=== PATIENT | female | born 1990 | race Two or more races ===

== ENCOUNTER 2019-09-26 16:13 | Inpatient (IN) | payer MEDICAID ==
[~2019-09-26] VITALS: Ht 165.1 cm; Wt 80.3 kg
[2019-09-26] MEDS ORDERED: POLYETHYLENE GLYCOL 17 GM PACKET PO PRN (16:30)
[2019-09-26] MEDS ORDERED: ONDANSETRON ODT 4 MG PO PRN (16:30)
[2019-09-26] MEDS ORDERED: ACETAMINOPHEN 325 MG TABLET PO PRN (16:30)
[2019-09-26] MEDS ORDERED: BISACODYL 10 MG SUPP PR PRN (16:30)
[2019-09-26] MEDS ORDERED: PLEASE ENTER ALLERGIES MC SCH ×2 (18:00→19:00)
[2019-09-26] MEDS ORDERED: PLEASE ENTER HEIGHT AND WEIGHT MC SCH (18:00)
[2019-09-26] MEDS ORDERED: CITA10TA8 PO (18:51)
[2019-09-26] MEDS ORDERED: ALBU6.7H8 INH (18:53)
[2019-09-26 18:58] LABS: MICROSCOPIC NOT IND
[2019-09-26 19:02] LABS: CULTURE INDICATED? NO
[2019-09-26 19:10] VITALS: BP 83/50
[2019-09-26 19:19] VITALS: BP 124/83
[2019-09-26] MEDS ORDERED: CITALOPRAM 20 MG TABLET PO SCH (21:30)
[2019-09-27 06:11] LABS: ANION GAP 5 mmol/L (5-15); CHLORIDE 108 mmol/L (98-107); CHOLESTEROL, TOTAL 228 mg/dL (140-239); CREATININE 0.75 mg/dL (0.55-1.02)
[2019-09-27 06:38] LABS: CHOL/HDL RATIO 5.4; HDL CHOL % 18 % (28-40); HDL CHOLESTEROL (DIRECT) 42 mg/dL (40-60); LDL CHOLESTEROL,CALCULATED 151 mg/dL (54-169); LDL/HDL RATIO 3.6 (0.5-3.0); TRIGLYCERIDES 177 mg/dL (50-200); VLDL CHOLESTEROL 35 mg/dL (0-25)
[2019-09-27 07:19] VITALS: BP 126/81
[2019-09-27] MEDS ORDERED: FLUCONAZOLE 100 MG TABLET PO ONE (08:30)
[2019-09-27 19:59] VITALS: BP 125/83
[2019-09-27 20:33] LABS: BASOPHILS # (AUTO) 0.06 x10^3/uL (0-0.1); BASOPHILS % (AUTO) 1 % (0-1); EOSINOPHILS # (AUTO) 0.06 x10^3/uL (0-0.4); EOSINOPHILS % (AUTO) 1 % (1-7); LYMPHOCYTES # (AUTO) 1.87 x10^3/uL (1-3.4); LYMPHOCYTES % (AUTO) 24 % (22-44); MD NO; MEAN CORPUSCULAR HEMOGLOBIN 30.1 pg (27.0-34.8); MEAN CORPUSCULAR HGB CONC 32.9 g/dL (32.4-35.8); MEAN CORPUSCULAR VOLUME 91.3 fL (80-100); MEAN PLATELET VOLUME 8.8 fL (7.4-10.4); MONOCYTES # (AUTO) 0.76 x10^3/uL (0.2-0.8); MONOCYTES % (AUTO) 10 % (2-9); NEUTROPHILS # (AUTO) 5.14 x10^3/uL (1.8-6.8); NEUTROPHILS % (AUTO) 65 % (42-75); PLATELET COUNT 260 x10^3/uL (130-400); RED BLOOD COUNT 4.77 x10^6/uL (3.82-5.3); RED CELL DISTRIBUTION WIDTH 16.5 % (9.6-15.2)
[2019-09-27] MEDS: DOCUSATE 100 MG CAPSULE PO PRN (20:33)
[2019-09-27] MEDS: CITALOPRAM 20 MG TABLET PO SCH (20:33)
[2019-09-28 07:48] VITALS: BP 135/86
[2019-09-28] MEDS: DOCUSATE 100 MG CAPSULE PO PRN (14:26)
[2019-09-28 19:42] VITALS: BP 132/87
[2019-09-28] MEDS: QUETIAPINE 25MG TABLET PO SCH (20:36)
[2019-09-28] MEDS: CITALOPRAM 20 MG TABLET PO SCH (20:36)
[2019-09-29 07:40] VITALS: BP 111/75
[2019-09-29] MEDS: DOCUSATE 100 MG CAPSULE PO PRN (08:27)
[2019-09-29] MEDS: CHOLECALCIFEROL 400 UNITS TABLET PO SCH (13:39)
[2019-09-29 19:25] VITALS: BP 123/79
[2019-09-29] MEDS: QUETIAPINE 25MG TABLET PO SCH (20:33)
[2019-09-29] MEDS: CITALOPRAM 20 MG TABLET PO SCH (20:33)
[2019-09-30 07:15] VITALS: BP 126/80
[2019-09-30] MEDS: CHOLECALCIFEROL 400 UNITS TABLET PO SCH (08:21)
[2019-09-30] MEDS: DOCUSATE 100 MG CAPSULE PO PRN (08:31)
[2019-09-30 19:00] VITALS: BP 116/78
[2019-09-30] MEDS: QUETIAPINE 25MG TABLET PO SCH (20:05)
[2019-09-30] MEDS: CITALOPRAM 20 MG TABLET PO SCH (20:05)
[2019-10-01 07:33] VITALS: BP 118/76
[2019-10-01] MEDS: CHOLECALCIFEROL 400 UNITS TABLET PO SCH (09:06)
[2019-10-01] MEDS ORDERED: CHOL400T2 PO (15:08)
[2019-10-01] MEDS ORDERED: QUET25TA7 PO (15:08)
[2019-10-01] MEDS ORDERED: CITA20TA9 PO (15:08)
[2019-10-01 19:30] VITALS: BP 121/80
[2019-10-01] MEDS: CITALOPRAM 20 MG TABLET PO SCH (19:57)
[2019-10-01] MEDS: QUETIAPINE 25MG TABLET PO SCH (19:58)
[2019-10-02 07:15] VITALS: BP 120/80
[2019-10-02] MEDS: CHOLECALCIFEROL 400 UNITS TABLET PO SCH (08:44)
== END 2019-10-02 10:25 | disposition home or self-care (01) | DRG 561 ==
LOC: 3E 17:41
PROVIDERS: ADMIT Psychiatry & Neurology Psychosomatic Medicine; ATTEND Psychiatry & Neurology Psychosomatic Medicine
DX: O99.345 Other mental disorders complicating the puerperium (principal); R45.851 Suicidal ideations; M41.9 Scoliosis, unspecified; F31.9 Bipolar disorder, unspecified; B37.3 Candidiasis of vulva and vagina; J45.909 Unspecified asthma, uncomplicated; F53.0 Postpartum depression; O99.53 Diseases of the respiratory system complicating the puerperium; Z79.899 Other long term (current) drug therapy; H54.8 Legal blindness, as defined in USA; H35.53 Other dystrophies primarily involving the sensory retina; G47.00 Insomnia, unspecified
CPT/HCPCS: 36415; 71045; 80048; 80061; 81003; 82607; 84439; 84443; 85025; 85651; 86592; 93005